=== PATIENT | male | born 1955 | race Two or more races ===

== ENCOUNTER 2021-05-10 16:17 | Emergency (ER) | payer OTHER ==
[~2021-05-10] VITALS: Ht 172.7 cm; Wt 91.6 kg
[~2021-05-10 16:17] MED LIST: ATOR10TA52 PO; CEPH500C PO; DABI150C5 PO; FINA5TAB4 PO; FURO40TA4 PO; GLIP10TA9 PO; HYDR-4296 PO; LISI20TA28 PO; METF-370 PO; METH5T PO; METO-289 PO; POTA10TA51 PO; TAMS0.4C36 PO
[2021-05-10 19:45] VITALS: BP 169/83
[2021-05-10] MEDS ORDERED: ACETAMINOPHEN 500 MG TAB PO ONE (21:15)
== END 2021-05-10 21:45 | disposition home or self-care (01) ==
LOC: EDBD 16:17 → ER 16:17
DX: S43.401A Unspecified sprain of right shoulder joint, initial encounter (principal); S83.92XA Sprain of unspecified site of left knee, initial encounter; R07.81 Pleurodynia; R51.9 Headache, unspecified; M79.641 Pain in right hand; I11.0 Hypertensive heart disease with heart failure; I50.9 Heart failure, unspecified; I25.2 Old myocardial infarction; E78.5 Hyperlipidemia, unspecified; Z95.0 Presence of cardiac pacemaker; Z79.899 Other long term (current) drug therapy; V49.49XA Driver injured in collision with other motor vehicles in traffic accident, initial encounter; Y93.89 Activity, other specified; Y92.410 Unspecified street and highway as the place of occurrence of the external cause; Y99.8 Other external cause status
CPT/HCPCS: 70450; 71101; 73030; 73130; 73562

== ENCOUNTER 2023-06-18 16:42 | Inpatient (IN) | payer OTHER ==
[~2023-06-18] VITALS: Ht 177.8 cm; Wt 100.6 kg
[~2023-06-18 16:42] MED LIST changes: -LISI20TA28 PO; +LISI20TA56 PO; -METH5T PO; +METH5TAB98 PO
[2023-06-18 17:15] LABS: Basophils # (auto) 0 10 ^3/uL (0-0.2); Basophils % (auto) 0.4 % (0.0-2.0); Eosinophils # (auto) 0.1 10 ^3/uL (0-0.8); Eosinophils % (auto) 1.9 % (0.0-7.0); Hemoglobin 11.5 g/dL (13.5-17.5); Lymphocytes % (auto) 16.5 % (10.0-50.0); Mean Corpuscular Hemoglobin 28.2 pg (28.0-32.0); Mean Corpuscular Hgb Conc. 32.9 g/dL (32.0-36.0); Mean Corpuscular Volume 85.8 fL (80.0-100.0); Monocytes # (auto) 0.5 10 ^3/uL (0-1.3); Monocytes % (auto) 8.6 % (0.0-12.0); Neutrophils # (auto) 4.4 10 ^3/uL (1.6-8.6); Neutrophils % (auto) 72.6 % (37.0-80.0); Nucleated Red Blood Cells % 0.1 %; Red Blood Cells 4.08 10^6/uL (4.5-5.90); Red Cell Distribution Width 14.9 % (11.8-14.3)
[2023-06-18 17:18] VITALS: PULSE 60; RESP 19; O2SAT 97
[2023-06-18 17:41] LABS: Alanine Aminotransferase 16 U/L (7-40); Albumin 4.4 g/dL (3.2-4.8); Alkaline Phosphatase 59 U/L (46-116); Anion Gap 7 (5-15); Aspartate Aminotransferase 13 U/L (13-40); BUN/Creatinine Ratio 12.8 (10.0-20.0); Bilirubin, Total 0.6 mg/dL (0.2-1.0); Blood Urea Nitrogen 23 mg/dL (9-23); Calcium 9.1 mg/dL (8.7-10.4); Carbon Dioxide 25 mmol/L (20-30); Chloride 102 mmol/L (98-107); Glucose 225 mg/dL (74-106); Potassium 4.1 mmol/L (3.5-5.1); Sodium 134 mmol/L (136-145)
[2023-06-18] MEDS ORDERED: ASPirin-EC 81 mg tab PO ONE (17:45)
[2023-06-18 17:58] LABS: Total Protein 6.7 g/dL (5.7-8.2)
[2023-06-18] MEDS ORDERED: MORPHINE SULFATE INJ 2 MG/ml SYRG IV PRN ×2 (19:15)
[2023-06-18] MEDS ORDERED: DEXTROSE (50%) 50ML SYRG IV PRN (19:15)
[2023-06-18] MEDS ORDERED: ACETAMINOPHEN 325 MG TAB PO PRN (19:15)
[2023-06-18] MEDS ORDERED: ONDANSETRON HCL 4 MG/2 ML VIAL IV PRN (19:15)
[2023-06-18] MEDS ORDERED: SODIUM CHLORIDE 0.9% 1,000 ML IV ONE (19:15)
[2023-06-18] MEDS ORDERED: HYDROcodone-ACET 5/325MG TAB PO PRN (19:15)
[2023-06-18] MEDS ORDERED: NITROGLYCERIN 0.4 MG SL TAB SL PRN (19:15)
[2023-06-18] MEDS: ACCU-CHEK COMFORT CURVE STRIP VI SCH (22:17)
[2023-06-18] MEDS: METOPROLOL SUCCINATE XL 50 MG TAB PO SCH (22:19)
[2023-06-18] MEDS: MELATONIN 5 MG TAB PO SCH (22:20)
[2023-06-18] MEDS: GABAPENTIN 300 MG CAP PO SCH (22:20)
[2023-06-18] MEDS: hydrALAZINE HCL 25 MG TAB PO SCH (22:20)
[2023-06-18] MEDS: ATORVASTATIN 20 MG TAB PO SCH (22:20)
[2023-06-18] MEDS: DABIGATRAN 75 MG CAP PO SCH (22:21)
[2023-06-18] MEDS: InsuLIN REG 1unit/0.01ml Soln (100units/ml) SC SCH (22:22)
[2023-06-18 23:34] VITALS: BP 112/61; PULSE 60; RESP 16; O2SAT 98
[2023-06-19] VITALS (10 sets, daily range): BP systolic 113–125; BP diastolic 67–76; PULSE 59–88; RESP 16–18; TEMP 98.1–98.5; O2SAT 93–100
[2023-06-19 06:18] LABS: Basophils # (auto) 0 10 ^3/uL (0-0.2); Basophils % (auto) 0.8 % (0.0-2.0); Eosinophils # (auto) 0.2 10 ^3/uL (0-0.8); Eosinophils % (auto) 3.6 % (0.0-7.0); Hematocrit 35.1 % (41.0-53.0); Hemoglobin 11.5 g/dL (13.5-17.5); Lymphocytes # (auto) 1.2 10 ^3/uL (0.4-5.4); Lymphocytes % (auto) 22.5 % (10.0-50.0); Mean Corpuscular Hemoglobin 28.2 pg (28.0-32.0); Mean Corpuscular Hgb Conc. 32.7 g/dL (32.0-36.0); Mean Corpuscular Volume 86.4 fL (80.0-100.0); Monocytes # (auto) 0.6 10 ^3/uL (0-1.3); Neutrophils # (auto) 3.2 10 ^3/uL (1.6-8.6); Neutrophils % (auto) 62.1 % (37.0-80.0); Nucleated Red Blood Cells % 0.1 %; Red Blood Cells 4.07 10^6/uL (4.5-5.90); Red Cell Distribution Width 14.6 % (11.8-14.3); White Blood Cell 5.2 10^3/uL (4.4-10.8)
[2023-06-19] MEDS: ACCU-CHEK COMFORT CURVE STRIP VI SCH ×4 (06:22→21:53)
[2023-06-19 06:26] LABS: Alanine Aminotransferase 16 U/L (7-40); Albumin 4.2 g/dL (3.2-4.8); Alkaline Phosphatase 56 U/L (46-116); Anion Gap 6 (5-15); Aspartate Aminotransferase 12 U/L (13-40); BUN/Creatinine Ratio 13.2 (10.0-20.0); Blood Urea Nitrogen 20 mg/dL (9-23); Carbon Dioxide 28 mmol/L (20-30); Chloride 108 mmol/L (98-107); Cholesterol 82 mg/dL (< 200); Glucose 165 mg/dL (74-106); HDL Cholesterol 39 mg/dL (40-59); LDL Cholesterol 33 mg/dL (< 100); Potassium 4.8 mmol/L (3.5-5.1); Sodium 142 mmol/L (136-145); Triglycerides 67 mg/dL (< 150)
[2023-06-19] MEDS: LEVOTHYROXINE SODIUM 50 MCG TAB PO SCH (06:26)
[2023-06-19 06:27] LABS: Bilirubin, Total 0.7 mg/dL (0.2-1.0); Total Protein 6.5 g/dL (5.7-8.2)
[2023-06-19] MEDS: InsuLIN REG 1unit/0.01ml Soln (100units/ml) SC SCH ×4 (06:27→21:47)
[2023-06-19] MEDS: DABIGATRAN 75 MG CAP PO SCH ×2 (09:01→17:42)
[2023-06-19 09:33] LABS: Urine Bacteria NONE SEEN /hpf (None Seen); Urine Blood Negative /uL (Negative); Urine Clarity Clear (Clear); Urine Protein, UAD Negative (Negative); Urine Specific Gravity 1.024 (1.001-1.035); Urine Urobilinogen Normal (Negative); Urine WBC <1 /hpf (0 - 3)
[2023-06-19] MEDS: LISINOPRIL 20 MG TAB PO SCH (09:45)
[2023-06-19] MEDS: METOPROLOL SUCCINATE XL 50 MG TAB PO SCH ×2 (09:48→21:35)
[2023-06-19] MEDS: GABAPENTIN 300 MG CAP PO SCH ×2 (09:48→21:35)
[2023-06-19] MEDS: hydrALAZINE HCL 25 MG TAB PO SCH ×2 (09:48→21:53)
[2023-06-19] MEDS: FINASTERIDE 5 MG TAB PO SCH (09:48)
[2023-06-19] MEDS: SPIRONOLACTONE 25 MG TAB PO SCH (09:48)
[2023-06-19 09:50] LABS: Urine Color Straw (Yellow)
[2023-06-19] MEDS ORDERED: EMPA1TAB3 PO (12:27)
[2023-06-19] MEDS ORDERED: GABA-339 PO (12:27)
[2023-06-19] MEDS ORDERED: SPIR25TA8 PO (12:27)
[2023-06-19] MEDS ORDERED: ATOR40TA52 PO (13:31)
[2023-06-19] MEDS ORDERED: LISI40TA16 PO (13:34)
[2023-06-19] MEDS ORDERED: METO1TAB9 PO (13:35)
[2023-06-19] MEDS ORDERED: LEVO150T10 PO (13:47)
[2023-06-19] MEDS ORDERED: AMOX500C2 PO (13:52)
[2023-06-19] MEDS ORDERED: TAMSULOSIN HYDROCHLORIDE 0.4 MG CAP PO SCH (18:00)
[2023-06-19] MEDS: ATORVASTATIN 20 MG TAB PO SCH (21:35)
[2023-06-19] MEDS: AMOXICILLIN TRIHYDRATE 250 MG CAP PO SCH (21:37)
[2023-06-19] MEDS: MELATONIN 5 MG TAB PO SCH (21:38)
[2023-06-20] VITALS (9 sets, daily range): BP systolic 94–164; BP diastolic 58–88; PULSE 60–88; RESP 15–20; TEMP 97.4–98.5; O2SAT 94–100
[2023-06-20] MEDS: LEVOTHYROXINE SODIUM 50 MCG TAB PO SCH (05:53)
[2023-06-20] MEDS: AMOXICILLIN TRIHYDRATE 250 MG CAP PO SCH ×2 (05:54→15:39)
[2023-06-20] MEDS: InsuLIN REG 1unit/0.01ml Soln (100units/ml) SC SCH ×3 (05:59→17:00)
[2023-06-20] MEDS: ACCU-CHEK COMFORT CURVE STRIP VI SCH ×3 (06:00→17:37)
[2023-06-20] MEDS: DABIGATRAN 75 MG CAP PO SCH (08:28)
[2023-06-20] MEDS: GABAPENTIN 300 MG CAP PO SCH (09:25)
[2023-06-20] MEDS: LISINOPRIL 20 MG TAB PO SCH (09:26)
[2023-06-20] MEDS: METOPROLOL SUCCINATE XL 50 MG TAB PO SCH (09:28)
[2023-06-20] MEDS: FINASTERIDE 5 MG TAB PO SCH (09:28)
[2023-06-20] MEDS: SPIRONOLACTONE 25 MG TAB PO SCH (09:28)
[2023-06-20] MEDS: hydrALAZINE HCL 25 MG TAB PO SCH (09:28)
== END 2023-06-20 17:50 | disposition home or self-care (01) | DRG 311 ==
LOC: EDBD 16:42 → ER 16:42 → TELE 19:36 → TELE-WESTW 06-19 12:18
PROVIDERS: ADMIT Nurse Practitioner Family; ATTEND Internal Medicine
PROC: 5A09357 Assistance with Respiratory Ventilation, Less than 24 Consecutive Hours, Continuous Positive Airway Pressure (ICD-10-PCS; principal; 2023-06-19)
DX: I24.9 Acute ischemic heart disease, unspecified (principal); N17.0 Acute kidney failure with tubular necrosis; I50.32 Chronic diastolic (congestive) heart failure; I11.0 Hypertensive heart disease with heart failure; E66.9 Obesity, unspecified; N40.0 Benign prostatic hyperplasia without lower urinary tract symptoms; E78.5 Hyperlipidemia, unspecified; I48.91 Unspecified atrial fibrillation; R55 Syncope and collapse; E03.9 Hypothyroidism, unspecified; Z71.3 Dietary counseling and surveillance; R79.89 Other specified abnormal findings of blood chemistry; E11.40 Type 2 diabetes mellitus with diabetic neuropathy, unspecified; I25.10 Atherosclerotic heart disease of native coronary artery without angina pectoris; I25.2 Old myocardial infarction; Z80.8 Family history of malignant neoplasm of other organs or systems; Z82.3 Family history of stroke; Z82.49 Family history of ischemic heart disease and other diseases of the circulatory system; Z83.3 Family history of diabetes mellitus; Z95.810 Presence of automatic (implantable) cardiac defibrillator; Z68.31 Body mass index [BMI] 31.0-31.9, adult
CPT/HCPCS: 36415; 71045; 80053; 80061; 81001; 82962; 83036; 83880; 84443; 84484; 85025; 85379; 93005; 93306; 94660; 96360; 97163; G0378; J1815